=== PATIENT | female | born 1985 | race Hispanic/Latino ===

== ENCOUNTER 2021-10-26 06:53 | Day surgery (SDC) | payer BC ==
[2021-10-26] MEDS ORDERED: hydrALAZINE 20 MG/ML VIAL SLOW IVP PRN (09:31)
== END 2021-10-26 09:40 | disposition home or self-care (01) ==
LOC: CSHLD/OP 06:53
PROVIDERS: ATTEND Obstetrics & Gynecology
DX: O46.93 Antepartum hemorrhage, unspecified, third trimester (principal); O47.1 False labor at or after 37 completed weeks of gestation; O09.523 Supervision of elderly multigravida, third trimester; Z3A.37 37 weeks gestation of pregnancy
CPT/HCPCS: 99283

== ENCOUNTER 2021-10-26 21:16 | Inpatient (IN) | payer BC ==
[~2021-10-26 21:16] MED LIST: Bupivacaine 0.25% HCL 30 ML VIAL ONE
[2021-10-26] MEDS ORDERED: hydrALAZINE 20 MG/ML VIAL SLOW IVP PRN ×2 (21:24→21:48)
[2021-10-26] MEDS ORDERED: Lidocaine 1% (PF) 30 ML VIAL SC PRN (21:48)
[2021-10-26] MEDS ORDERED: Misoprostol 200 MCG TAB PR PRN (21:48)
[2021-10-26] MEDS ORDERED: Acetaminophen 500 MG TAB PO PRN (21:48)
[2021-10-26] MEDS ORDERED: Carboprost 250 MCG/ML AMP IM PRN (21:48)
[2021-10-26] MEDS ORDERED: Ondansetron PF 4 MG/2 ML Vial IVP PRN ×2 (21:48→23:48)
[2021-10-26] MEDS ORDERED: Promethazine HCl 25 MG/ML VIAL IM PRN ×2 (21:48→23:48)
[2021-10-26] MEDS ORDERED: HYDROcodone/Acetaminophen 5/325 mg Tablet PO PRN ×2 (21:48)
[2021-10-26] MEDS ORDERED: Ibuprofen 800 MG TAB PO PRN (21:48)
[2021-10-26] MEDS ORDERED: Butorphanol Tartrate 1 MG/ML VIAL SLOW IVP PRN (21:48)
[2021-10-26] MEDS ORDERED: Methylergonovine 0.2 MG/ML VIAL IM PRN (21:48)
[2021-10-26] MEDS ORDERED: Diphenoxylate HCl/Atropine Tablet PO PRN ×2 (21:48)
[2021-10-26] MEDS ORDERED: Penicillin G Potassium 5 MILL.UNITS VIAL ONE (21:54)
[2021-10-26] MEDS ORDERED: Lactated Ringer's 1,000 ML IV SCH (22:00)
[2021-10-26] MEDS ORDERED: Penicillin G Potassium 5 MILL.UNITS in Sodium Chloride 0.9% 100 ML IVPB SCH (22:00)
[2021-10-26 22:14] VITALS: BMI 29.2
[2021-10-26 22:51] LABS: Hemoglobin 12.8 g/dL (12.0-15.5); Mean Corpuscular HGB CONC 34.9 g/dL (32.0-36.0); Mean Corpuscular Hemoglobin 31.1 pg (27.0-33.0); Mean Corpuscular Volume 89.3 fl (81.6-98.3); Mean Platelet Volume 11.5 fl (7.4-10.4); Platelet Count 229 10x3/uL (150-450); RBC Distribution Width 11.9 % (11.5-14.5); Red Blood Cell (RBC) Count 4.11 10x6/uL (3.90-5.03); White Blood Cell (WBC) Count 14.8 10x3/uL (3.5-10.5)
[2021-10-26] MEDS ORDERED: Fentanyl 2 mcg/Bup 0.1% Cadd 100 ML ONE (23:06)
[2021-10-26 23:17] LABS: HIV (1/2) Antibody/Antigen Non-Reactive (NonReactive); HIV 1/2 INDEX 0.09 S/CO (<1.00); Hep B Surf Ag Non-Reactive S/CO (NonReactive); Syphilis Antibody Nonreactive (Nonreactive); Syphilis Antibody Index 0.02 S/CO (<1.00 Non-Reactive)
[2021-10-26 23:24] LABS: HBSAg Index 0.17 S/CO (0-0.99)
[2021-10-26] MEDS ORDERED: Fentanyl 2 mcg/Bupivacaine 0.1% Cassette 100 ML EPIDURAL SCH (23:45)
[2021-10-26] MEDS ORDERED: Communication Order-Pharmacy FS SCH (23:45)
[2021-10-26] MEDS: Penicillin G 2.5 MILL.units 2.5 MILL.UNITS in Premix Bag 1 BAG IVPB SCH (23:47)
[2021-10-26] MEDS ORDERED: Acetaminophen 325 MG TAB PO PRN (23:48)
[2021-10-26] MEDS ORDERED: Lactated Ringer's 500 ML IV PRN (23:48)
[2021-10-26] MEDS ORDERED: Hydrocerin (Eucerin) Cream 120 gm Jar TOP PRN (23:48)
[2021-10-26] MEDS ORDERED: Naloxone HCl 0.4 mg/ml Vial IVP PRN ×2 (23:48)
[2021-10-26] MEDS ORDERED: ePHEDrine Sulfate 50 MG/10 ML VIAL SLOW IVP PRN (23:48)
[2021-10-26] MEDS ORDERED: diphenhydrAMINE 50 MG/ML VIAL IVP PRN (23:48)
[2021-10-27 01:25] LABS: SARS-CoV-2 NAA Rapid Test Not Detected (NotDetected)
[2021-10-27] MEDS: NS w/ Oxytocin 30 units 500 ML IV SCH ×2 (01:35→03:31)
[2021-10-27] MEDS: Penicillin G 2.5 MILL.units 2.5 MILL.UNITS in Premix Bag 1 BAG IVPB SCH (02:12)
[2021-10-27] MEDS ORDERED: Misoprostol 200 MCG TAB VAG PRN (04:31)
[2021-10-27] MEDS ORDERED: NS w/ Oxytocin 30 units 500 ML IV SCH (04:31)
[2021-10-27] MEDS ORDERED: Bisacodyl 10 MG SUPP PR PRN (04:31)
[2021-10-27] MEDS ORDERED: Milk Of Magnesia 30 ML UDCUP PO PRN (04:31)
[2021-10-27] MEDS ORDERED: Promethazine HCl 25 MG/ML VIAL IM PRN (04:31)
[2021-10-27] MEDS ORDERED: Lanolin Ointment 7 GM TUBE TOP PRN (04:31)
[2021-10-27] MEDS ORDERED: hydrALAZINE 20 MG/ML VIAL SLOW IVP PRN (04:31)
[2021-10-27] MEDS ORDERED: Methylergonovine 0.2 MG/ML VIAL IM PRN (04:31)
[2021-10-27] MEDS ORDERED: Benzocaine-Menthol 82.5 ML CAN TOP PRN (04:31)
[2021-10-27] MEDS ORDERED: Acetaminophen/Codeine 30-300mg Tablet PO PRN (04:31)
[2021-10-27] MEDS ORDERED: Ondansetron PF 4 MG/2 ML Vial IVP PRN (04:31)
[2021-10-27] MEDS ORDERED: Boostrix 0.5 ML (Tdap) VIAL IM ONE (04:31)
[2021-10-27] MEDS ORDERED: HYDROcodone/Acetaminophen 5/325 mg Tablet PO PRN (04:31)
[2021-10-27] MEDS: Ibuprofen 800 MG TAB PO SCH ×4 (06:40→21:08)
[2021-10-27] MEDS: Ferrous Sulfate 325 MG TAB PO SCH ×2 (07:40→16:43)
[2021-10-27] MEDS: Docusate Calcium (SURFAK) 240 MG CAP PO SCH ×2 (08:56→21:08)
[2021-10-27] MEDS: Prenatal Vitamin 1 TAB PO SCH (08:56)
[2021-10-28] MEDS: Ibuprofen 800 MG TAB PO SCH ×2 (05:10→14:07)
[2021-10-28 05:19] LABS: Hemoglobin 12.4 g/dL (12.0-15.5); Mean Corpuscular HGB CONC 33.2 g/dL (32.0-36.0); Mean Corpuscular Hemoglobin 30.7 pg (27.0-33.0); Mean Corpuscular Volume 92.6 fl (81.6-98.3); Platelet Count 185 10x3/uL (150-450); RBC Distribution Width 12.3 % (11.5-14.5); Red Blood Cell (RBC) Count 4.04 10x6/uL (3.90-5.03)
[2021-10-28] MEDS: Ferrous Sulfate 325 MG TAB PO SCH ×2 (07:38→16:10)
[2021-10-28] MEDS: Prenatal Vitamin 1 TAB PO SCH (08:38)
[2021-10-28] MEDS: Docusate Calcium (SURFAK) 240 MG CAP PO SCH (08:38)
[2021-10-28 11:49] VITALS: BP 117/62; TEMP 98.1
== END 2021-10-28 19:20 | disposition home or self-care (01) | DRG 807 ==
LOC: CSHLD/OP 21:16 → CSHLD 21:17 → CSHPP 10-27 04:30
PROVIDERS: ADMIT Obstetrics & Gynecology; ATTEND Obstetrics & Gynecology
PROC: 10E0XZZ Delivery of Products of Conception, External Approach (ICD-10-PCS; principal; 2021-10-26)
PROC: 0W8NXZZ Division of Female Perineum, External Approach (ICD-10-PCS; 2021-10-26)
DX: O80 Encounter for full-term uncomplicated delivery (principal); Z37.0 Single live birth; Z3A.38 38 weeks gestation of pregnancy; Z20.822 Contact with and (suspected) exposure to COVID-19
CPT/HCPCS: 36415; 51702; 85027; 86780; 86850; 86900; 86901; 87340; 87389; 99283; 99285; J2540; J2590; J3490; J7120; S0020; U0002